=== PATIENT | female | born 1980 | race Caucasian/White ===

== ENCOUNTER 2017-03-25 13:09 | Emergency (ER) | payer SELFPAY ==
[~2017-03-25] VITALS: Ht 162.6 cm; Wt 74.0 kg
[2017-03-25 13:25] VITALS: Ht 162.6 cm; Wt 74.0 kg
== END 2017-03-25 16:55 | disposition home or self-care (01) ==
LOC: ED 13:09
DX: J06.9 Acute upper respiratory infection, unspecified (principal)
CPT/HCPCS: 86308; J1885